=== PATIENT | female | born 1955 | race Caucasian/White ===

== ENCOUNTER → 2024-12-09 | Outpatient (CLI) | payer MEDICARE ==
--- NOTE | 2024-12-09 14:56 | MM ---
Reason for Exam: Screening (asymptomatic). Last mammogram was performed 2 year(s) and 3 month(s) ago. Patient History: Menarche at age 11. First Full-Term at age 18. Postmenopausal. Mother had breast cancer, age 60. Risk Values: Kathleen 5 year model risk: 3.2%. NCI Lifetime model risk: 9.2%. Prior Study Comparison: 06/02/2003 Bilateral Screening Mammogram, [facility]. 02/24/2005 Bilateral Screening Mammogram, [facility]. 07/25/2006 Bilateral Screening Mammogram, [facility]. Tissue Density: The breasts are heterogeneously dense, which may obscure small masses. Findings: Analyzed By CAD. A focal 1.9 cm asymmetry near the left nipple slightly outer aspect is more prominent from most recent prior . Possible summation density. Overall Assessment: Incomplete: need additional imaging evaluation, BI-RAD 0 Management: Diagnostic Breast Ultrasound of the right breast. Diagnostic Mammogram of the right breast. Additional spot 3-D and 3-D true lateral views. Possible targeted ultrasound based on additional views. [facility] will attempt to contact patient to return for supplemental views and ultrasound if indicated. Patient should continue monthly self-breast exams. A clinical breast exam by your physician is recommended on an annual basis. This exam should not preclude additional follow-up of suspicious palpable abnormalities. Note on Kathleen scores and lifetime risk: 1. A Kathleen score greater than 3% is considered moderate risk. If this is the case, consider specialist referral to assess eligibility for a risk reducing agent. 2. If overall lifetime risk for the development of breast cancer is 20% or higher, the patient may qualify for future screening with alternating mammogram and breast MRI. [facility], , 12/09/2024 2:53 PM. Electronically signed and approved by: Justin Esquivel M.D.
--- NOTE | 2024-12-09 16:44 | BD ---
EXAMINATION TYPE: Axial Bone Density DATE OF EXAM: 12/09/2024 CLINICAL HISTORY: 69 years old Female. ICD-10 CODE: M85.80 DISORDER OF BONE , Additional History: Height: 69 in Weight: 181 lbs EXAM MEASUREMENTS: Bone mineral densitometry was performed using the [employer] System. Bone mineral density as measured about the Lumbar spine is: ----- L1-L4(G/cm2): 0.969 T Score Values are as follows: ----- L1: -1.7 ----- L2: -1.3 ----- L3: -1.6 ----- L4: -2.5 ----- L1-L4: -1.8 Z Score Values are as follows: ----- L1: -0.6 ----- L2: -0.2 ----- L3: -0.5 ----- L4: -1.4 ----- L1-L4: -0.6 Bone mineral density baseline Bone mineral density about the R hip (g/cm2): 0.759 Bone mineral density about the L hip (g/cm2): 0.725 T Score values are as follows: -----R Neck: -1.9 -----L Neck: -1.9 -----R Total: -2.0 -----L Total: -2.2 Z Score values are as follows: -----R Neck: -0.5 -----L Neck: -0.6 -----R Total: -0.9 -----L Total: -1.1 Bone mineral density baseline FRAX%s: The graph provided illustrates a 11.9% chance for a major osteoporotic fx and a 2.3% chance f or the hips probability for fx in 10 years time. IMPRESSION: Osteopenia (T Score between -2.5 and -1). There is slightly increased risk of fracture and the patient may be considered for treatment. Re-Screen 2-5 years. NOTE: T-SCORE=SD OF THE YOUNG ADULT MEAN. [facility], , 12/09/2024 4:42 PM
== END | disposition home or self-care (01) ==
LOC: RADMAMWWP 14:03
PROVIDERS: ATTEND Internal Medicine
DX: Z12.31 Encounter for screening mammogram for malignant neoplasm of breast (principal); R92.333 Mammographic heterogeneous density, bilateral breasts; M85.89 Other specified disorders of bone density and structure, multiple sites; Z78.0 Asymptomatic menopausal state; Z80.3 Family history of malignant neoplasm of breast
CPT/HCPCS: 77063; 77067; 77080

== ENCOUNTER → 2024-12-15 | Outpatient (CLI) | payer MEDICARE ==
--- NOTE | 2024-12-15 08:35 | MM ---
Reason for Exam: Additional evaluation requested from abnormal screening. Last screening mammogram was performed less than 1 month ago. Patient History: Menarche at age 11. First Full-Term at age 18. Postmenopausal. Mother had breast cancer, age 60. Risk Values: Kathleen 5 year model risk: 3.2%. NCI Lifetime model risk: 9.2%. Tissue Density: Left: The breasts are heterogeneously dense, which may obscure small masses. Findings: Analyzed By CAD. Nodular density within the upper outer retroareolar left breast persists. The density measures 12 mm and is 1 cm from the nipple. Ultrasound is advised. Overall Assessment: Incomplete: need additional imaging evaluation, BI-RAD 0 Management: Diagnostic Breast Ultrasound of the left breast. . Results were given to the patient verbally at the time of exam. Patient should continue monthly self-breast exams. A clinical breast exam by your physician is recommended on an annual basis. This exam should not preclude additional follow-up of suspicious palpable abnormalities. Note on Kathleen scores and lifetime risk: 1. A Kathleen score greater than 3% is considered moderate risk. If this is the case, consider specialist referral to assess eligibility for a risk reducing agent. 2. If overall lifetime risk for the development of breast cancer is 20% or higher, the patient may qualify for future screening with alternating mammogram and breast MRI. [facility], , 12/15/2024 8:22 AM. Electronically signed and approved by: Ky Bangura M.D. Radiologis
--- NOTE | 2024-12-15 08:44 | USB ---
Reason for Exam: Additional evaluation requested from prior study. Patient History: Menarche at age 11. First Full-Term at age 18. Postmenopausal. Mother had breast cancer, age 60. Risk Values: Kathleen 5 year model risk: 3.2%. NCI Lifetime model risk: 9.2%. Technique: Method: Targeted. Prior Study Comparison: 07/25/2006 Bilateral Screening Mammogram, [facility]. 09/26/2022 Bilateral Screening Mammogram, [facility] . 12/09/2024 Bilateral MG 3D screening mammo w/cad, [facility]. Findings: The upper section of the breast of the left breast, the axilla of the left breast and the retroareolar of the left breast were scanned. No solid or cystic masses are identified.. Overall Assessment: Benign, BI-RAD 2 Management: Screening Mammogram of both breasts in 1 year. A clinical breast exam by your physician is recommended on an annual basis and results should be correlated with mammographic findings. This exam should not preclude additional follow-up of suspicious palpable abnormalities. Results were given to the patient verbally at the time of exam. [facility], , 12/15/2024 8:39 AM. Electronically signed and approved by: Ky Bangura M.D. Radiologis
== END | disposition home or self-care (01) ==
LOC: RADMAMWWP 08:01
PROVIDERS: ATTEND Internal Medicine
DX: R92.8 Other abnormal and inconclusive findings on diagnostic imaging of breast (principal); R92.332 Mammographic heterogeneous density, left breast; Z78.0 Asymptomatic menopausal state; Z80.3 Family history of malignant neoplasm of breast
CPT/HCPCS: 77065; 76642; G0279; 77061